=== PATIENT | male | born 1985 | race Caucasian/White ===

== ENCOUNTER 2017-01-29 12:26 | Emergency (ER) | payer MEDICAID ==
[~2017-01-29] VITALS: Ht 167.6 cm; Wt 84.5 kg
[~2017-01-29 12:26] MED LIST: HYDR-523 PO
[2017-01-29] MEDS ORDERED: KETOROLAC 60MG/2ML VIAL IM ONE (13:15)
[2017-01-29 13:50] VITALS: BP 105/71
== END 2017-01-29 14:30 | disposition home or self-care (01) ==
LOC: ER 13:08
DX: L03.011 Cellulitis of right finger (principal); F14.10 Cocaine abuse, uncomplicated
CPT/HCPCS: 73130; 96372; 99284; J1885; Z7610